=== PATIENT | female | born 1970 ===

== ENCOUNTER 2022-03-03 07:41 | Emergency (ER) | payer OTHER, MEDICAID, SELFPAY ==
[2022-03-03] VITALS (12 sets, daily range): BP systolic 140–160; BP diastolic 67–98; PULSE 57–96; RESP 12; TEMP 36.9; O2SAT 91–100; BMI 27.3
--- NOTE | 2022-03-03 08:07 | ED_ITS ---
HPI - General Adult General Chief complaint: Abdominal Pain Stated complaint: rt abdominal pain Time Seen by Provider: 03/03/22 08:05 Source: patient Mode of arrival: EMS Limitations: no limitations History of Present Illness HPI narrative: Patient is a 51-year-old female. Has had her gallbladder removed and also her right ovary removed. Is here for evaluation of generalized abdominal discomfort. She states she woke up this morning at approximately 0400 hours. She felt like she had to have a bowel movement and also urinate. She had an episode of diarrhea. Afterward she started to have upper abdominal discomfort. She had nausea. She broke out into a sweat. It has since eased up somewhat but is now spread out all over her abdomen. No urinary symptoms. Her symptoms were not improving so she contacted EMS bring her into the emergency department. Related Data Allergies Allergy/AdvReac Type Severity Reaction Status Date / Time No Known Drug Allergies Allergy Verified 03/03/22 10:16 Review of Systems Constitutional Constitutional: Reports system reviewed and no additional complaints, except as documented Cardiovascular Cardiovascular: Reports system reviewed and no additional complaints, except as documented Respiratory Respiratory: Reports system reviewed and no additional complaints, except as documented Gastrointestinal Gastrointestinal: Reports system reviewed and no additional complaints, except as documented Genitourinary Genitourinary: Reports system reviewed and no additional complaints, except as documented Integumentary/Breasts Skin/Breast: Reports system reviewed and no additional complaints, except as documented Hematologic/Lymphatic On Anticoagulants: No Patient History Surgical History History of right oophorectomy Hx laparoscopic cholecystectomy Social History (Updated 03/03/22 @ 08:09 by Anastacio Musa DO) lives independently: Yes Exam Initial Vital Signs Initial Vital Signs: Vital Signs Pulse Rate 70 03/03/22 07:45 Pulse Oximetry 99 03/03/22 07:45 HENMT Head: normal to inspection Resp Effort & Inspection: normal respiratory effort Auscultation: clear to auscultation bilaterally Cardio Rate: regular rate Rhythm: regular rhythm GI Inspection: normal to inspection and non-distended Palpation: soft and tender (Diffuse) Back/Spine/Pelvis Back: No CVA tenderness Skin General: no rashes or lesions noted Neuro General: patient alert, patient awake and moves all extremities Extrem General: normal to inspection Psych Appearance: grossly normal and well kempt Course Orders Ordered: ED Orders 03/03/22 07:51 Complete Blood Count AUTO DIFF Stat Comprehensive Metabolic Panel Stat Lipase Stat Pathologist Review (for CBC) Stat Prothrombin Time INR Stat 03/03/22 09:05 CT abdomen pelvis w con Stat 03/03/22 11:10 GI Panel (Film Array) Stat 03/03/22 11:12 Urine Microscopic Stat Discontinued Medications Sodium Chloride (Normal Saline 0.9%) 1,000 mls @ 1,000 mls/hr IV BOLUS ONE Stop: 03/03/22 09:05 Last Infusion: 03/03/22 10:18 Dose: 0 mls/hr Documented By: Admin: 03/03/22 08:36 Dose: 1,000 mls/hr Documented By: DAMON Morphine Sulfate (Morphine 4 Mg/Ml Inj) 4 mg IV NOW ONE Stop: 03/03/22 10:08 Last Admin: 03/03/22 10:18 Dose: 4 mg Documented By: MANNIE Ondansetron HCl (Ondansetron 4 Mg/2 Ml Inj) 4 mg IV NOW ONE Stop: 03/03/22 08:08 Last Admin: 03/03/22 08:36 Dose: 4 mg Documented By: DAMON Vital Signs Vital signs: Vital Signs - 8 hr 03/03/22 11:52 03/03/22 09:04 03/03/22 09:05 Pulse Rate 87 92 H Blood Pressure 140/71 153/73 H Pulse Oximetry 96 100 Oxygen Delivery Method Room Air 03/03/22 09:05 03/03/22 09:30 03/03/22 09:30 Pulse Rate 84 74 Blood Pressure 147/67 H Pulse Oximetry 99 91 Oxygen Delivery Method 03/03/22 10:00 03/03/22 10:00 03/03/22 10:03 Pulse Rate 90 96 H Blood Pressure 156/98 H Pulse Oximetry 96 95 Oxygen Delivery Method 03/03/22 11:07 Pulse Rate Blood Pressure 148/70 H Pulse Oximetry Oxygen Delivery Method Medical Decision Making Lab Data Lab results reviewed: Yes I reviewed the patient's lab results. Result diagrams: 03/03/22 07:51 03/03/22 07:51 Labs: Lab Results 03/03/22 03/03/22 03/03/22 Range/Units 07:51 07:51 07:51 WBC 9.0 (4.5-11.0) X10^3/uL RBC 4.81 (4.0-5.2) X10^6/uL Hgb 8.2 L (12.0-16.0) g/dL Hct 28.2 L (36-46) % MCV 58.7 L (80-100) fL MCH 17.1 L (26-34) PG MCHC 29.1 L (30-36) % RDW 18.2 H (11.6-14.8) % Plt Count 411 H (150-400) X10^3/uL Neut % (Auto) 71.6 (50-75) % Lymph % (Auto) 14.9 L (25-40) % [place] % (Auto) 8.0 (3-14) % Eos % (Auto) 4.6 H (2-4) % Baso % (Auto) 0.9 (0-2) % Neut # (Auto) 6500 (9492-5146) /uL Lymph # (Auto) 1300 (4246-1352) /uL [place] # (Auto) 700 (0-900) /uL Eos # (Auto) 400 (0-450) /uL Baso # (Auto) 100 (0-100) /uL RBC Morphology See below Hypochromasia 2+ H Microcytosis 3+ H Ovalocytes 1+ H PT 12.1 (10.1-12.7) SECONDS INR 1.1 (0.9-1.3) Sodium 140 (137-145) mmol/L Potassium 4.6 (3.4-5.1) mmol/L Chloride 104 (98-107) mmol/L Carbon Dioxide 27 (22-32) mmol/L BUN 11 (7-17) mg/dL Creatinine 0.58 (0.52-1.04) mg/dL Estimated GFR > 60 (>60) mL/min BUN/Creatinine Ratio 19.0 (6-22) Glucose 101 H (70-100) mg/dL Calcium 8.3 L (8.4-10.2) mg/dL Total Bilirubin 0.4 (0.2-1.3) mg/dL AST 20 (14-36) IU/L ALT 13 (<35) IU/L Alkaline Phosphatase 89 (38-126) U/L Total Protein 7.4 (6.3-8.2) g/dL Albumin 3.7 (3.5-5.0) g/dL Globulin 3.7 (1.7-4.1) g/dL Albumin/Globulin Ratio 1.0 (1.0-2.8) Lipase 94 (23-300) U/L Urine RBC (0-5/HPF) Urine WBC (0-5/HPF) Urine Bacteria (None) Ur Culture Indicated? Stl C. cayetanensis PCR (Not Detect) Stool Rotavirus (PCR) (Not Detect) Stool Adenovirus (PCR) (Not Detect) Stool Astrovirus (PCR) (Not Detect) Stool Cryptosporidium PCR (Not Detect) Stl E.coli Shiga Tox PCR (Not Detect) St Sh/Enteroin Ecoli PCR (Not Detect) Stool E coli O157 PCR (Not Detect) Stl Enterotoxigenic E PCR (Not Detect) Stool EPEC (PCR) (Not Detect) Stl E. histolytica PCR (Not Detect) Stool Giardia Lamblia PCR (Not Detect) Stool Sapovirus (PCR) (Not Detect) Stl P. shigelloides PCR (Not Detect) St Y.enterocolitica PCR (Not Detect) Stool Vibrio (PCR) (Not Detect) Stl Vibrio cholerae PCR (Not Detect) Stl Enteroaggr Ecoli PCR (Not Detect) Stl Norovirus GI/GII PCR (Not Detect) Campylobacter (PCR) (Not Detect) C. difficile Tox (PCR) (Not Detect) Salmonella (PCR) (Not Detect) 03/03/22 03/03/22 Range/Units 11:10 11:12 WBC (4.5-11.0) X10^3/uL RBC (4.0-5.2) X10^6/uL Hgb (12.0-16.0) g/dL Hct (36-46) % MCV (80-100) fL MCH (26-34) PG MCHC (30-36) % RDW (11.6-14.8) % Plt Count (150-400) X10^3/uL Neut % (Auto) (50-75) % Lymph % (Auto) (25-40) % [place] % (Auto) (3-14) % Eos % (Auto) (2-4) % Baso % (Auto) (0-2) % Neut # (Auto) (8384-3448) /uL Lymph # (Auto) (5851-7033) /uL [place] # (Auto) (0-900) /uL Eos # (Auto) (0-450) /uL Baso # (Auto) (0-100) /uL RBC Morphology Hypochromasia Microcytosis Ovalocytes PT (10.1-12.7) SECONDS INR (0.9-1.3) Sodium (137-145) mmol/L Potassium (3.4-5.1) mmol/L Chloride (98-107) mmol/L Carbon Dioxide (22-32) mmol/L BUN (7-17) mg/dL Creatinine (0.52-1.04) mg/dL Estimated GFR (>60) mL/min BUN/Creatinine Ratio (6-22) Glucose (70-100) mg/dL Calcium (8.4-10.2) mg/dL Total Bilirubin (0.2-1.3) mg/dL AST (14-36) IU/L ALT (<35) IU/L Alkaline Phosphatase (38-126) U/L Total Protein (6.3-8.2) g/dL Albumin (3.5-5.0) g/dL Globulin (1.7-4.1) g/dL Albumin/Globulin Ratio (1.0-2.8) Lipase (23-300) U/L Urine RBC None seen (0-5/HPF) Urine WBC None seen (0-5/HPF) Urine Bacteria None seen (None) Ur Culture Indicated? Cult not indicated Stl C. cayetanensis PCR Not detected (Not Detect) Stool Rotavirus (PCR) Not detected (Not Detect) Stool Adenovirus (PCR) Not detected (Not Detect) Stool Astrovirus (PCR) Not detected (Not Detect) Stool Cryptosporidium PCR Not detected (Not Detect) Stl E.coli Shiga Tox PCR Not detected (Not Detect) St Sh/Enteroin Ecoli PCR Not detected (Not Detect) Stool E coli O157 PCR Not detected (Not Detect) Stl Enterotoxigenic E PCR Not detected (Not Detect) Stool EPEC (PCR) Not detected (Not Detect) Stl E. histolytica PCR Not detected (Not Detect) Stool Giardia Lamblia PCR Not detected (Not Detect) Stool Sapovirus (PCR) Not detected (Not Detect) Stl P. shigelloides PCR Not detected (Not Detect) St Y.enterocolitica PCR Not detected (Not Detect) Stool Vibrio (PCR) Not detected (Not Detect) Stl Vibrio cholerae PCR Not detected (Not Detect) Stl Enteroaggr Ecoli PCR Not detected (Not Detect) Stl Norovirus GI/GII PCR Not detected (Not Detect) Campylobacter (PCR) Not detected (Not Detect) C. difficile Tox (PCR) Not detected (Not Detect) Salmonella (PCR) Not detected (Not Detect) Urine Dip Bedside Urine Glucose Negative Bedside Urine Bilirubin - Negative Bedside Urine Ketone - Negative Urine Specific [place] 1.015 Bedside Urine Occult Blood +/- Bedside Urine pH 6.0 Bedside Urine Protein - Negative Bedside Urine Urobilinogen - Negative Bedside Urine Nitrite - Negative Bedside Urine Leukocytes - Negative Esterase Point of care testing: Urine Dip Bedside Urine Glucose Negative Bedside Urine Bilirubin - Negative Bedside Urine Ketone - Negative Urine Specific [place] 1.015 Bedside Urine Occult Blood +/- Bedside Urine pH 6.0 Bedside Urine Protein - Negative Bedside Urine Urobilinogen - Negative Bedside Urine Nitrite - Negative Bedside Urine Leukocytes - Negative Esterase Imaging Data CT scan - abdomen/pelvis: Radiologist's Impression: [place] [address] CT Scan Report Signed Patient: Lorelei Lilly MR#: [id number] : 1970 Acct:[id number] Age/Sex: 51 / F Date of Service: 03/03/22 Loc: ED Accession Number: [id number] ?? Procedure: CT abdomen pelvis w con Ordering Provider: Anastacio Musa D.O. PROCEDURE:? CT ABDOMEN PELVIS W CON ? INDICATIONS:? Generalized abdominal tenderness ? TECHNIQUE:? After the administration of intravenous contrast, axial sections acquired from the lung bases to the pubic symphysis.? Coronal and sagittal reformats were performed.? For radiation dose reduction, the following was used:? automated exposure control, adjustment of mA and/or kV according to patient size.? ? COMPARISON:? None. ? FINDINGS:? Image quality:? Excellent.? ? Lung bases:? Small left pleural effusion.. Heart:? No significant findings. ? ABDOMEN: Liver:? Unremarkable.? ? Gallbladder:? Surgically absent? ? Biliary ducts:? Unremarkable.? ? Pancreas:? Unremarkable.? ? Spleen:? Mild splenomegaly.? Spleen measures 13.5 cm. .? ? Adrenal Glands:? Unremarkable.? ? Kidneys and Ureters:? Unremarkable.? ? ? Stomach and Bowel:? Stomach, small bowel loops, and colon are unremarkable.? Peritoneum:? No abnormal intraperitoneal fluid.? No free air.? ? Ventral Wall: ? No hernias.? Abdominal Nodes:? No retroperitoneal or mesenteric adenopathy by size criteria.? There is water density infiltrative tissue that surrounds the proximal SMA, well seen on image 27/2.? It measures approximately 3.3 x 3.0 cm.? 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 There is shotty periaortic adenopathy.? No individual lymph nodes are normal by size criteria.? These lymph nodes are most likely reactive in nature.? Vessels:? Aorta and inferior vena cava are normal in size.? ? PELVIS: Pelvic Organs:? Unremarkable.? ? Bladder:? Unremarkable.? ? Pelvic Nodes: No enlarged lymph nodes.? Miscellaneous: No hernias are seen. ? ? ? Bones:? Degenerative change.? No lytic or blastic bony lesions.? No compression fractures. ? ? IMPRESSION:? ? 1. No evidence of acute abdominal process.? No findings which explain the patient's right flank pain. ? 2. Mild splenomegaly. ? 3. Small left pleural effusion. ? 4. Shotty periaortic adenopathy. ? 5. 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 ? Comment:? Consider repeat CT in 3-4 months to re-evaluate the mild splenomegaly, borderline periaortic adenopathy, and water density tissue infiltrating around the SMA.? ? ? Dictated by: Jcarlos Benitez M.D. on 03/03/2022 at 9:56 ? ? Approved by: Jcarlos Benitez M.D. on 03/03/2022 at 10:02 MDM Narrative Medical decision making narrative: Patient does have generalized abdominal tenderness. CT scan shows no signs of acute pathology. Her urinalysis is unremarkable. She was able to provide a stool sample for us. This was eventually unremarkable. No indication for antibiotics. She was given return precautions follow-up instructions. She expressed understanding and agreement. Discharge Plan Departure Patient Disposition: Home Clinical Impression: Abdominal pain, Diarrhea Instructions: Diarrhea, DI for Abdominal Pain-Adult Activity Restrictions/Additional Instructions: Recommend that you increase your fluid intake. Your symptoms should improve over the next couple days. A stool sample was pending at the time of your discharge we will contact you need to start any antibiotics. Return to the emergency department for any new symptoms. Referrals: Edmundo Gee MD [Primary Care Provider] - Visit Report Forms: Patient Portal/API
[2022-03-03 08:13] LABS: INR 1.1 (0.9-1.3); Prothrombin Time 12.1 SECONDS (10.1-12.7)
[2022-03-03 08:20] LABS: Add Manual Diff / Slide Review NO; Basophils Absolute Auto 100 /uL (0-100); Basophils Percent Auto 0.9 % (0-2); Eosinophils Absolute Auto 400 /uL (0-450); Eosinophils Percent Auto 4.6 % (2-4); Hematocrit 28.2 % (36-46); Hemoglobin 8.2 g/dL (12.0-16.0); Lymphocytes Absolute Auto 1300 /uL (1100-4500); Lymphocytes Percent Auto 14.9 % (25-40); Mean Corpuscular HGB Conc 29.1 % (30-36); Mean Corpuscular Hemoglobin 17.1 PG (26-34); Mean Corpuscular Volume 58.7 fL (80-100); Monocytes Absolute Auto 700 /uL (0-900); Neutrophils Absolute Auto 6500 /uL (1500-7000); Neutrophils Percent Auto 71.6 % (50-75); Platelet Count 411 X10^3/uL (150-400); Red Blood Cell Count 4.81 X10^6/uL (4.0-5.2); Red Cell Distribution Width 18.2 % (11.6-14.8)
[2022-03-03] MEDS: ONDANSETRON 4 MG/2 ML INJ IV (08:36)
[2022-03-03] MEDS: SODIUM CHLORIDE 0.9% 1,000 ML 1000 ML IV (08:36)
[2022-03-03 08:40] LABS: Alanine Aminotransferase 13 IU/L (<35); Albumin 3.7 g/dL (3.5-5.0); Alkaline Phosphatase 89 U/L (38-126); Aspartate Aminotransferase 20 IU/L (14-36); Bilirubin Total 0.4 mg/dL (0.2-1.3); Blood Urea Nitrogen 11 mg/dL (7-17); Calcium 8.3 mg/dL (8.4-10.2); Carbon Dioxide 27 mmol/L (22-32); Chloride 104 mmol/L (98-107); Estimated Glomerular Filt Rate > 60 mL/min (>60); Globulin 3.7 g/dL (1.7-4.1); Glucose 101 mg/dL (70-100); HEMOLYSIS < 15 (0-50); Lipase 94 U/L (23-300); Potassium 4.6 mmol/L (3.4-5.1); Sodium 140 mmol/L (137-145); Total Protein 7.4 g/dL (6.3-8.2)
[2022-03-03 08:54] LABS: Hypochromasia 2+; Microcytosis 3+; Ovalocytes 1+
--- NOTE | 2022-03-03 09:05 | DI.CT.S_ITS ---
PROCEDURE: CT ABDOMEN PELVIS W CON INDICATIONS: Generalized abdominal tenderness TECHNIQUE: After the administration of intravenous contrast, axial sections acquired from the lung bases to the pubic symphysis. Coronal and sagittal reformats were performed. For radiation dose reduction, the following was used: automated exposure control, adjustment of mA and/or kV according to patient size. COMPARISON: None. FINDINGS: Image quality: Excellent. Lung bases: Small left pleural effusion.. Heart: No significant findings. ABDOMEN: Liver: Unremarkable. Gallbladder: Surgically absent Biliary ducts: Unremarkable. Pancreas: Unremarkable. Spleen: Mild splenomegaly. Spleen measures 13.5 cm. . Adrenal Glands: Unremarkable. Kidneys and Ureters: Unremarkable. Stomach and Bowel: Stomach, small bowel loops, and colon are unremarkable. Peritoneum: No abnormal intraperitoneal fluid. No free air. Ventral Wall: No hernias. Abdominal Nodes: No retroperitoneal or mesenteric adenopathy by size criteria. There is water density infiltrative tissue that surrounds the proximal SMA, well seen on image 27/2. It measures approximately 3.3 x 3.0 cm. 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 There is shotty periaortic adenopathy. No individual lymph nodes are normal by size criteria. These lymph nodes are most likely reactive in nature. Vessels: Aorta and inferior vena cava are normal in size. PELVIS: Pelvic Organs: Unremarkable. Bladder: Unremarkable. Pelvic Nodes: No enlarged lymph nodes. Miscellaneous: No hernias are seen. Bones: Degenerative change. No lytic or blastic bony lesions. No compression fractures. IMPRESSION: 1. No evidence of acute abdominal process. No findings which explain the patient's right flank pain. 2. Mild splenomegaly. 3. Small left pleural effusion. 4. Shotty periaortic adenopathy. 5. 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 Comment: Consider repeat CT in 3-4 months to re-evaluate the mild splenomegaly, borderline periaortic adenopathy, and water density tissue infiltrating around the SMA. Dictated by: Jcarlos Benitez M.D. on 03/03/2022 at 9:56 Approved by: Jcarlos Benitez M.D. on 03/03/2022 at 10:02
[2022-03-03] MEDS: MORPHINE 4 MG/ML INJ IV (10:18)
[2022-03-03 12:02] LABS: Bacteria Urine None Seen; Culture Indicated Urine Cult Not Indicated; RBC Urine None Seen (0-5/HPF); WBC Urine None Seen (0-5/HPF)
[2022-03-03 13:11] LABS: Adenovirus F 40/41 Not Detected (Not Detect); Astrovirus Not Detected (Not Detect); Campylobacter Not Detected (Not Detect); Clostridium difficile toxin AB Not Detected (Not Detect); Cryptosporidium Not Detected (Not Detect); Cyclospora cayetanensis Not Detected (Not Detect); Entamoeba histolytica Not Detected (Not Detect); Enteroaggregative E.coli Not Detected (Not Detect); Enteropathogenic E.coli Not Detected (Not Detect); Enterotoxigenic E.coli It/st Not Detected (Not Detect); Giardia lamblia Not Detected (Not Detect); Norovirus GI/GII Not Detected (Not Detect); Plesiomonsa shigelloides Not Detected (Not Detect); Rotavirus A Not Detected (Not Detect); Salmonella Not Detected (Not Detect); Sapovirus Not Detected (Not Detect); Shiga-like toxin-prod E.coli Not Detected (Not Detect); Shigella/Enteroinvasive E.coli Not Detected (Not Detect); Vibrio Not Detected (Not Detect); Vibrio cholerae Not Detected (Not Detect); Yersinia enterocolitica Not Detected (Not Detect)
== END 2022-03-03 12:12 | disposition home or self-care (01) ==
PROVIDERS: Emergency Provider Emergency Medicine; PCP Family Medicine
DX: R10.84 Generalized abdominal pain (principal); R19.7 Diarrhea, unspecified
CPT/HCPCS: 36415; 74177; 80053; 81003; 81015; 83690; 85025; 85610; 87507; 96361; 96374; 96375; 99284; J2270; J2405